=== PATIENT | male | born 1995 | race Two or more races ===

== ENCOUNTER 2020-10-01 16:44 | Emergency (ER) | payer OTHER ==
[~2020-10-01] VITALS: Ht 172.7 cm; Wt 81.8 kg
[2020-10-01 17:19] VITALS: BP 116/80
== END 2020-10-01 17:45 | disposition home or self-care (01) ==
LOC: ER 16:45
DX: R42 Dizziness and giddiness (principal); R63.0 Anorexia; R68.83 Chills (without fever); Z20.828 Contact with and (suspected) exposure to other viral communicable diseases
CPT/HCPCS: 36415; 99282; 99283